=== PATIENT | male | born 2000 | race Caucasian/White ===

== ENCOUNTER 2022-10-17 19:23 | Emergency (ER) | payer OTHER ==
[2022-10-17 20:24] VITALS: TEMP 98.2
[2022-10-17 20:49] LABS: Basophils % (A) 0 %; Eosinophils # (A) 0.1 k/uL (0-0.7); Eosinophils % (A) 2 %; HCT 43.5 % (39.0-53.0); HGB 14.5 gm/dL (13.0-17.5); Lymphocytes # (A) 1.3 k/uL (1.0-4.8); Lymphocytes % (A) 17 %; MCH 28.6 pg (25.0-35.0); MCHC 33.3 g/dL (31.0-37.0); MCV 85.8 fL (80.0-100.0); Mean Platelet Volume 7.8; Monocytes # (A) 0.8 k/uL (0-1.0); Monocytes % (A) 11 %; Neutrophils % (A) 68 %; Platelet Count 160 k/uL (150-450); RBC 5.07 m/uL (4.30-5.90); RDW 12.4 % (11.5-15.5); WBC 7.3 k/uL (3.8-10.6)
[2022-10-17 21:04] LABS: ALT 20 U/L (4-49); AST 23 U/L (17-59); African American GFR (CKD) >90 (>60 ml/min/1.73 sqM); Albumin 4.3 g/dL (3.5-5.0); Alkaline Phosphatase 37 U/L (38-126); Anion Gap 10 mmol/L; Blood Urea Nitrogen 10 mg/dL (9-20); Calcium 9.1 mg/dL (8.4-10.2); Carbon Dioxide 26 mmol/L (22-30); Chloride 101 mmol/L (98-107); Glucose 93 mg/dL (74-99); Non-African American GFR(CKD) >90 (>60 ml/min/1.73 sqM); Sodium 137 mmol/L (137-145); Total Bilirubin 0.5 mg/dL (0.2-1.3); Total Protein 6.9 g/dL (6.3-8.2)
--- NOTE | 2022-10-17 21:16 | ED ---
Chest Pain HPI - General Source: patient Mode of arrival: ambulatory Limitations: no limitations <Elidia Guthrie - Last Filed: 10/17/22 21:15> - History of Present Illness -: hour(s) (16) Onset: awoke with symptoms Pain Location: substernal, right chest, other (6) Quality: aching Consistency: intermittent Improves With: remaining still Worsens With: other (cough deep breath or palpation) Treatments Prior to Arrival: none - Related Data On Oral Contraceptives: No <Austin Roberts - Last Filed: 10/18/22 05:05> - General Chief Complaint: Chest Pain Stated Complaint: Back & R Sided Chest Pain Time Seen by Provider: 10/17/22 21:15 - History of Present Illness Initial Comments: 22-year-old male presenting with chief complaint of chest pain. It started upon waking up this morning. Pleuritic in nature. (Elidia Guthrie) Pleasant nontoxic-appearing 22-year-old male presents to the emergency room with complaints of chest pain and right-sided rib pain that radiates to his back. Patient states he awoke with symptoms. Pain is worse with palpation, cough or deep breath. Denies any fevers. No nausea vomiting or diarrhea. 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 Denies any medical history is an occasional smoker. (Austin Roberts) - Related Data Home Medications Medication Instructions Recorded Confirmed Dextroamphetamine/Amphetamine 0 mg PO DAILY 01/17/14 01/17/14 [Adderall] Allergies Allergy/AdvReac Type Severity Reaction Status Date / Time No Known Allergies Allergy Verified 01/17/14 15:08 Review of Systems ROS Other: All systems not noted in ROS Statement are negative. <Elidia Guthrie - Last Filed: 10/17/22 21:15> ROS Other: All systems not noted in ROS Statement are negative. <Austin Roberts - Last Filed: 10/18/22 05:05> ROS Statement: Those systems with pertinent positive or pertinent negative responses have been documented in the HPI. Past Medical History Additional Past Medical History / Comment(s): headaches, no toes on right foot due to accident History of Any Multi-Drug Resistant Organisms: None Reported Past Surgical History: Orthopedic Surgery, Tonsillectomy Past Psychological History: ADD/ADHD Smoking Status: Vaper Past Alcohol Use History: None Reported Past Drug Use History: Marijuana <GuthrieElidia - Last Filed: 10/17/22 21:15> General Exam Limitations: no limitations <GuthrieElidia - Last Filed: 10/17/22 21:15> - General Exam Comments Initial Comments: Visual Physical Exam Vital signs reviewed General: Well-appearing, nontoxic, no acute distress. Head: Normocephalic, atraumatic Eyes: PERRLA, EOMI ENT: Airway patent Chest: Nonlabored breathing Skin: No visual rash, normal skin tone Neuro: Alert and oriented 3 Musculoskeletal: No gross abnormalities (Elidia Guthrie) Course Vital Signs 10/17/22 10/17/22 10/17/22 20:21 22:40 23:53 Temperature 98.2 F Pulse Rate 96 75 86 Respiratory 18 21 18 Rate Blood Pressure 129/86 131/79 124/72 O2 Sat by Pulse 100 99 99 Oximetry Chest Pain MDM <Austin Roberts - Last Filed: 10/18/22 05:05> - MDM Was pt. sent in by a medical professional or institution (, PA, PIPE ASSEMBLY WORKER, urgent care, hospital, or [facility]...) When possible be specific @ -No Did you speak to anyone other than the patient for history (EMS, parent, family, police, friend...)? What history was obtained from this source @ -No Did you review nursing and triage notes (agree or disagree)? Why? @ -I reviewed and agree with nursing and triage notes Were old charts reviewed (outside hosp., previous admission, EMS record, old EKG, old radiological studies, urgent care reports/EKG's, [facility] records)? Report findings @ -No old charts were reviewed Differential Diagnosis (chest pain, altered mental status, abdominal pain women, abdominal pain men, vaginal bleeding, weakness, fever, dyspnea, syncope, headache, dizziness, GI bleed, back pain, seizure, CVA, palpatations, mental health, musculoskeletal)? @ -Differential Chest Pain: Stable Angina, Unstable Angina, STEMI, NSTEMI Aortic Dissection, Pneumothorax, Musculoskeletal, Esophageal Spasm GERD, Cholecystitis, Pancreatitis, Zoster, this is not meant to be an all-inclusive list. EKG interpreted by me (3pts min.). @ -yes EKG interpreted by me shows sinus rhythm with a ventricular rate of 79, NH interval 0.177, QRS 0.92, QTC 0.378, normal axis. X-rays interpreted by me (1pt min.). @ -yes Chest x-ray interpreted by me shows no focal consolidation, cardiac silhouette within normal size. No evidence of free air. Trachea is midline. CT interpreted by me (1pt min.). @ -None done U/S interpreted by me (1pt. min.). @ -None done What testing was considered but not performed or refused? (CT, X-rays, U/S, labs)? Why? @ -None What meds were considered but not given or refused? Why? @ -None Did you discuss the management of the patient with other professionals (professionals i.e. , PA, PIPE ASSEMBLY WORKER, lab, RT, psych nurse, addiction social worker, solar water heater installer, teacher, protective services officer, telehealth case manager)? Give summary @ -No Was smoking cessation discussed for >3mins.? @ -No Was critical care preformed (if so, how long)? @ -No Were there social determinants of health that impacted care today? How? (Ho melessness, low income, unemployed, alcoholism, drug addiction, transportation, low edu. Level, literacy, decrease access to med. care, assisted, rehab)? @ -No Was there de-escalation of care discussed even if they declined (Discuss DNR or withdrawal of care, Hospice)? DNR status @ -No What co-morbidities impacted this encounter? (DM, HTN, Smoking, COPD, CAD, Cancer, CVA, ARF, Chemo, Hep., AIDS, mental health diagnosis, sleep apnea, morbid obesity)? @ -None Was patient admitted / discharged? Hospital course, mention meds given and route, prescriptions, significant lab abnormalities, going to OR and other pertinent info. @ -Discharged Pleasant nontoxic-appearing 22-year-old male presents to the emergency room with complaints of chest pain and right-sided rib pain that radiates to his back. Patient states he awoke with symptoms. Pain is worse with palpation, cough or deep breath. Denies any fevers. No nausea vomiting or diarrhea. 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 Denies any medical history is an occasional smoker. CBC and electrolytes are unremarkable. Troponin -0.012. Urinalysis shows trace ketones no other abnormalities. Chest x-ray interpreted by me shows no focal consolidation, cardiac silhouette within normal size. No evidence of free air. Trachea is midline. Radiologist interpretation no acute process. Patient was given a shot of Toradol. This is likely musculoskeletal pain worse with palpation or movements. Vital signs are stable oxygen saturation is 100% heart rate of 96 and afebrile. Patient feeling better after Toradol. Discharged home direct take Tylenol Motrin as he for any pain or discomfort. Follow-up with his primary care doctor next week. Return to the emergency room with any new or concerning symptoms. He is agreeable to this plan of care. Case was discussed with Dr. Elizabeth Undiagnosed new problem with uncertain prognosis? @ -No Drug Therapy requiring intensive monitoring for toxicity (Heparin, Nitro, Insulin, Cardizem)? @ -No Were any procedures done? @ -No Diagnosis/symptom? @ -Musculoskeletal pain, costochondritis Acute, or Chronic, or Acute on Chronic? @ -Acute Uncomplicated (without systemic symptoms) or Complicated (systemic symptoms)? @ -Uncomplicated Side effects of treatment? @ -No Exacerbation, Progression, or Severe Exacerbation? @ -No Poses a threat to life or bodily function? How? (Chest pain, [place], [place], pneumonia, PE, COPD, DKA, ARF, appy, cholecystitis, CVA, Diverticulitis, Homicidal, Suicidal, threat to staff... and all critical care pts) @ -No (Austin Roberts) Disposition <Elidia Guthrie - Last Filed: 10/17/22 21:15> Is patient prescribed a controlled substance at d/c from ED?: No Time of Disposition: 23:22 <Austin oRberts - Last Filed: 10/18/22 05:05> Clinical Impression: Musculoskeletal chest pain, Costochondritis Disposition: HOME SELF-CARE Condition: Good Instructions (If sedation given, give patient instructions): Costochondritis (ED), Musculoskeletal Pain (ED) Additional Instructions: Increase your fluid intake. Tylenol and or Motrin as needed for any pain or discomfort. Return to the emergency room with any new or concerning symptoms including persistent nausea vomiting, fevers or difficulty breathing. Referrals: None,Stated [Primary Care Provider] - 1-2 days
[2022-10-17 21:19] LABS: Appearance,Urine Clear (Clear); Bilirubin,Urine Negative (Negative); Blood,Urine Negative (Negative); Color,Urine Light Yellow; Glucose,Urine (UA) Negative (Negative); Ketones,Urine Trace (Negative); Leukocyte Esterase,Urine Negative (Negative); Nitrite,Urine Negative (Negative); Protein,Urine Negative (Negative); Specific Gravity,Urine 1.008 (1.001-1.035); Urobilinogen,Urine <2.0 mg/dL (<2.0)
--- NOTE | 2022-10-17 22:08 | XR ---
EXAMINATION: XR chest 2V: 10/17/2022 8:37 PM CLINICAL INDICATION: chest pain TECHNIQUE: Departmental protocol COMPARISON: None FINDINGS: The lungs are clear. The pleural spaces are negative. The cardiac silhouette is not enlarged. The remainder of the mediastinal silhouette is unremarkable. The skeletal structures and soft tissues are negative for acute findings. IMPRESSION: No acute process.
[2022-10-17] MEDS ORDERED: KETOROLAC 15 MG/ML 1 ML VIAL IM STA (22:47)
[2022-10-17 23:54] VITALS: BP 124/72; PULSE 86; RESP 18
== END 2022-10-17 23:54 | disposition home or self-care (01) ==
LOC: EC 19:23
DX: R07.89 Other chest pain (principal); M94.0 Chondrocostal junction syndrome [Tietze]; F90.9 Attention-deficit hyperactivity disorder, unspecified type; F17.290 Nicotine dependence, other tobacco product, uncomplicated; F12.90 Cannabis use, unspecified, uncomplicated; Z79.899 Other long term (current) drug therapy
CPT/HCPCS: 36415; 93005; 80053; 84484; 85025; 81003; 71046; 99285; 96372; J1885

== ENCOUNTER 2024-11-19 13:59 | Emergency (ER) | payer OTHER ==
--- NOTE | 2024-11-19 14:21 | ED ---
Extremity Problem HPI - General Chief complaint: Extremity Problem,Nontraumatic Stated complaint: right hand cant close - swollen Time Seen by Provider: 11/19/24 14:07 Source: patient, RN notes reviewed Mode of arrival: ambulatory Limitations: no limitations - History of Present Illness Initial comments: This is a 24-year-old male who presents to the emergency department for right hand pain. States that for the last 3 to 4 days he has had pain that starts at the base of the right thumb and travels down into his wrist. Pain is not particularly bothersome at rest, but states that when he goes to move his fingers or close his hand it becomes more bothersome. Denies any injuries. 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 He did try a dose of ibuprofen and is unsure if it was effective. MD Complaint: extremity pain - Related Data Home Medications Medication Instructions Recorded Confirmed Dextroamphetamine/Amphetamine 0 mg PO DAILY 01/17/14 01/17/14 [Adderall] Previous Rx's Medication Instructions Recorded Diclofenac Sodium [Voltaren] 75 mg PO BID PRN #30 tab 11/19/24 predniSONE 50 mg PO DAILY 5 Days #5 tab 11/19/24 Allergies Allergy/AdvReac Type Severity Reaction Status Date / Time No Known Allergies Allergy Verified 11/19/24 14:05 Review of Systems ROS Statement: Those systems with pertinent positive or pertinent negative responses have been documented in the HPI. ROS Other: All systems not noted in ROS Statement are negative. Past Medical History Additional Past Medical History / Comment(s): headaches, no toes on right foot due to accident History of Any Multi-Drug Resistant Organisms: None Reported Past Surgical History: Orthopedic Surgery, Tonsillectomy Past Psychological History: ADD/ADHD Smoking Status: Vaper Past Alcohol Use History: None Reported Past Drug Use History: Marijuana General Exam Limitations: no limitations General appearance: alert, in no apparent distress Head exam: Present: atraumatic, normocephalic, normal inspection Respiratory exam: Present: normal lung sounds bilaterally. Absent: respiratory distress, wheezes, rales, rhonchi, stridor Cardiovascular Exam: Present: regular rate, normal rhythm Extremities exam: Present: other (No swelling, erythema, or warmth to the right hand or wrist. Range of motion induces pain. Positive Lisa test on the right. 2+ radial pulses bilaterally.) Neurological exam: Present: alert, oriented X3, CN II-XII intact Psychiatric exam: Present: normal affect, normal mood Skin exam: Present: warm, dry, intact, normal color. Absent: rash Course Vital Signs 11/19/24 11/19/24 14:01 15:24 Temperature 98.0 F 97.8 F Pulse Rate 85 78 Respiratory 22 18 Rate Blood Pressure 147/89 124/78 O2 Sat by Pulse 98 98 Oximetry Medical Decision Making - Medical Decision Making This is a 24-year-old male who presents to the emergency department for right hand pain. Was pt. sent in by a medical professional or institution? @ -No Did you speak to anyone other than the patient for history? @ -No Did you review nursing and triage notes? @ -Yes, and I agree, it is accurate with regards to the patient's symptoms. Were old charts reviewed? @ -No Differential Diagnosis? @ -Differential Musculoskeletal Muscular strain, contusion, ligament sprain, fracture, arthritis, septic arthritis, bursitis, cellulitis, muscle spasm, nerve compression, DVT, arterial occlusion, herpes zoster, electrolyte abnormality, tumor.... This is not meant to be in all inclusive list EKG interpreted by me (3pts min.)? @ -Not obtained X-rays interpreted by me (1pt min.)? @ -X-ray of the right hand and wrist obtained. My interpretation identifies no acute fractures. CT interpreted by me (1pt min.)? @ -Not obtained U/S interpreted by me (1pt. min.)? @ -Not obtained What testing was considered but not performed? (CT, X-rays, U/S, labs)? Why? @ -None What meds were considered but not given? Why? @ -None Did you discuss the management of the patient with other professionals? @ -No Did you reconcile home meds? @ -No Was smoking cessation discussed for >3mins.? @ -No Was critical care preformed (if so, how long)? @ -No Were there social determinants of health that impacted care today? How? (Homelessness, low income, unemployed, alcoholism, drug addiction, transportation, low edu. Level, literacy, decrease access to med. care, half-way, rehab)? @ -No Was there de-escalation of care discussed even if they declined? (Discuss DNR or withdrawal of care, Hospice)? @ -No What co-morbidities impacted this encounter? (DM, HTN, Smoking, COPD, CAD, Cancer, CVA, Hep., AIDS, mental health diagnosis, sleep apnea, morbid obesity)? @ -None Was patient admitted / discharged? @ -Discharged. X-ray of the right hand and wrist obtained revealing no acute findings. 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 Pain was managed in the emergency department. Prescription for diclofenac provided for further management. Also advised that he purchase an [id number] brace for this condition and to immobilize the thumb and help it heal. Information for follow-up with orthopedics provided in the event symptoms persist. Patient discharged home in stable condition. Case discussed with ED attending Dr. Dunaway. Return precautions reviewed in depth, the patient is instructed to return to the emergency department with any new, worsening, or concerning symptoms. Patient verbalized understanding. Undiagnosed new problem with uncertain prognosis? @ -None Drug Therapy requiring intensive monitoring for toxicity (Heparin, Nitro, Insulin, Cardizem)? @ -None Were any procedures done? @ -None Diagnosis/symptom? @ -De Quervain's tenosynovitis Acute, or Chronic, or Acute on Chronic? @ -Acute Uncomplicated (without systemic symptoms) or Complicated (systemic symptoms)? @ -Uncomplicated Side effects of treatment? @ -None Exacerbation, Progression, or Severe Exacerbation] @ -Not applicable Poses a threat to life or bodily function? @ -May limit his use of the right hand for the meantime. - Radiology Data Radiology results: report reviewed, image reviewed Disposition Clinical Impression: De Quervain's tenosynovitis, right Disposition: HOME SELF-CARE Instructions (If sedation given, give patient instructions): De Quervain Disease (ED), Tendinitis (ED) Additional Instructions: Return to the emergency department with any new, worsening, or concerning symptoms. Take the diclofenac twice daily. Do not take any other anti- inflammatories like ibuprofen when taking this. You may take it with Tylenol for further relief. Look online or at the store for a wrist brace specifically for de Quervain's tenosynovitis to help immobilize this area. Wear it as much as you are able to to help the area heal. If you are not getting better in the next few days, contact orthopedics as listed below for a follow-up appointment. Prescriptions: predniSONE 50 mg PO DAILY 5 Days #5 tab Diclofenac Sodium [Voltaren] 75 mg PO BID PRN #30 tab PRN Reason: Pain Is patient prescribed a controlled substance at d/c from ED?: No Referrals: None,Stated [Primary Care Provider] - 1-2 days Vijay Bates MD [STAFF PHYSICIAN] - 1-2 days Time of Disposition: 15:10
[2024-11-19] MEDS: ACETAMINOPHEN TAB 500 MG TAB PO STA (14:45)
[2024-11-19] MEDS: KETOROLAC 15 MG/ML 1 ML VIAL IM STA (14:46)
[2024-11-19] MEDS: DEXAMETHASONE SOD PHOSPHATE 10 MG/ML 1 ML VIAL IM STA (14:48)
--- NOTE | 2024-11-19 14:58 | XR ---
EXAMINATION TYPE: XR wrist complete 4 views RT, XR hand complete 3 views RT DATE OF EXAM: 11/19/2024 2:41 PM COMPARISON: None CLINICAL INDICATION: Male, 24 years old with history of Pain; [facility] FINDINGS: Wrist: The radiocarpal and distal radioulnar joint as well as the midcarpal compartment appear intact. No ac tavon fracture, subluxation, or dislocation. Hand: No marginal erosions or soft tissue calcifications. Joint spaces throughout are maintained. No acute fracture, subluxation, or dislocation. No periostitis or osteolysis. IMPRESSION: Wrist and hand without acute osseous abnormality seen. [facility], Workstation: [facility], 11/19/2024 2:55 PM
[2024-11-19 15:26] VITALS: BP 124/78; PULSE 78; RESP 18; TEMP 97.8
== END 2024-11-19 15:26 | disposition home or self-care (01) ==
LOC: EC 13:59
DX: M65.4 Radial styloid tenosynovitis [de Quervain] (principal); F17.290 Nicotine dependence, other tobacco product, uncomplicated
CPT/HCPCS: 96372; 99283